=== PATIENT | male | born 1965 | race Caucasian/White ===

== ENCOUNTER 2020-12-10 11:12 | Emergency (ER) | payer OTHER ==
[~2020-12-10] VITALS: Ht 175.3 cm; Wt 95.3 kg
== END 2020-12-10 14:06 | disposition home or self-care (01) ==
LOC: ER 11:12
DX: R10.9 Unspecified abdominal pain (principal)

== ENCOUNTER 2021-01-28 15:10 | Outpatient (CLI) | payer OTHER | END 2021-01-28 15:30 | disposition home or self-care (01) | LOC: PPH VACUNA 15:10 | PROVIDERS: ATTEND Emergency Medicine Pediatric Emergency Medicine | DX: Z23 Encounter for immunization (principal) ==

== ENCOUNTER 2022-01-11 10:36 | Outpatient (CLI) | payer OTHER | END 2022-01-11 10:46 | disposition home or self-care (01) | LOC: PPH VACUNA 10:36 | PROVIDERS: ATTEND Emergency Medicine Pediatric Emergency Medicine | DX: Z23 Encounter for immunization (principal) ==